=== PATIENT | male | born 1985 | race Caucasian/White ===

== ENCOUNTER 2017-03-23 05:16 | Emergency (ER) | payer MEDICAID ==
[~2017-03-23] VITALS: Ht 182.9 cm; Wt 85.9 kg
[2017-03-23 06:13] VITALS: BP 128/78
[2017-03-23] MEDS ORDERED: ALBUTEROL/IPRATROPIUM 2.5MG/0.5MG, 3 ML ONE (06:18)
[2017-03-23] MEDS: ALBUTEROL/IPRATROPIUM 2.5MG/0.5MG, 3 ML NPPB SCH (06:21)
== END 2017-03-23 07:38 | disposition home or self-care (01) ==
LOC: ED 05:50
DX: R06.00 Dyspnea, unspecified (principal); J45.909 Unspecified asthma, uncomplicated; F17.210 Nicotine dependence, cigarettes, uncomplicated
CPT/HCPCS: 36415; 71020; 84484; 93005; 94640; 99285; J7512; J7620

== ENCOUNTER 2019-10-12 11:47 | Emergency (ER) | payer SELFPAY ==
[~2019-10-12] VITALS: Ht 182.9 cm; Wt 88.7 kg
--- NOTE | 2019-10-12 11:55 | NUR ---
[facility] GRUBBS AT .
[2019-10-12] MEDS ORDERED: ACETAMINOPHEN 500 MG TABLET ONE (11:59)
[2019-10-12] MEDS ORDERED: ACETAMINOPHEN 500 MG TABLET PO ONE (12:00)
--- NOTE | 2019-10-12 12:05 | NUR ---
L WRIST ELEVATED & ICE PACK APPLIED. PT MEDICATED PER ORDERS, UNDERSTANDS POC.
[2019-10-12 13:10] VITALS: BP 118/73
--- NOTE | 2019-10-12 13:15 | NUR ---
L THUMB SPICA SPLINT APPLIED BY APPLIANCE LINE ASSEMBLER. CMS INTACT. SLING PROVIDED TO PT. D/C INSTRUCTIONS, MEDS & F/U APPT RV'WD WITH PT, HE VERBALIZES UNDERSTANDING. PT AMBULATED OUT OF ED WITH SIGNIFICANT OTHER WITHOUT DIFFICULTY.
== END 2019-10-12 13:25 | disposition home or self-care (01) ==
LOC: ED 13:00
DX: M25.532 Pain in left wrist (principal); W18.39XA Other fall on same level, initial encounter; Y93.51 Activity, roller skating (inline) and skateboarding; Y92.328 Other athletic field as the place of occurrence of the external cause; Y99.8 Other external cause status
CPT/HCPCS: 99283

== ENCOUNTER 2020-03-12 02:44 | Emergency (ER) | payer SELFPAY ==
[2020-03-12 02:46] VITALS: BP 120/80
--- NOTE | 2020-03-12 02:56 | NUR ---
TASK RN: PT FAMILY CALLED AND REPORTS SHE FOUND HEROIN RESIDUE AT HOME. IS CONCERNED PT OVERDOSED ON HEROIN. ASKED TO BE CALLED WITH UPDATES. WALLY,
[2020-03-12] MEDS ORDERED: SODIUM CHLORIDE FLUSH 10ML SYR IVF ONE (03:00)
[2020-03-12] MEDS ORDERED: SODIUM CHLORIDE 0.9% 1,000ML IVBOLUS ONE (03:00)
[2020-03-12 03:15] LABS: BASOPHILS # (AUTO) 0.03 x10^3/uL (0-0.1); BASOPHILS % (AUTO) 0 % (0-1); EOSINOPHILS # (AUTO) 0.18 x10^3/uL (0-0.4); EOSINOPHILS % (AUTO) 2 % (1-7); LYMPHOCYTES # (AUTO) 1.32 x10^3/uL (1-3.4); LYMPHOCYTES % (AUTO) 14 % (22-44); MD NO; MEAN CORPUSCULAR HEMOGLOBIN 31.3 pg (27.5-34.5); MEAN CORPUSCULAR HGB CONC 33.4 g/dL (33.2-36.2); MONOCYTES % (AUTO) 10 % (2-9); NEUTROPHILS # (AUTO) 6.97 x10^3/uL (1.8-6.8); NEUTROPHILS % (AUTO) 74 % (42-75); PLATELET COUNT 180 x10^3/uL (130-400); RED BLOOD COUNT 4.85 x10^6/uL (4.38-5.82); RED CELL DISTRIBUTION WIDTH 14.1 % (9.4-14.8)
[2020-03-12 03:22] LABS: ALANINE AMINOTRANSFERASE 169 U/L (12-78); ALBUMIN 3.3 g/dL (3.4-5.0); ANION GAP 6 mmol/L (5-15); CALCIUM 7.7 mg/dL (8.5-10.1); CHLORIDE 103 mmol/L (98-107); CREATININE 1.12 mg/dL (0.7-1.3)
[2020-03-12 03:25] LABS: ALKALINE PHOSPHATASE 62 U/L (45-117); BILIRUBIN,TOTAL 0.7 mg/dL (0.2-1.0); CREATINE KINASE, TOTAL 163 U/L (39-308); TOTAL PROTEIN 7.2 g/dL (6.4-8.2)
--- NOTE | 2020-03-12 04:14 | NUR ---
PT ASLEEP IN [facility] AT THIS TIME; EVELIO. CALL LIGHT IS WITHIN REACH OF PT AT THIS TIME.
[2020-03-12] MEDS ORDERED: NALOXONE 0.4 MG/ML, 1ML ONE (04:20)
[2020-03-12] MEDS ORDERED: NALOXONE 0.4 MG/ML, 1ML IVPush ONE (04:30)
--- NOTE | 2020-03-12 04:33 | NUR ---
PT ELOPED AT THIS TIME. PT GOT ANGRY AND AGGRESSIVE WITH STAFF AFTER IV ADMINISTRATION OF NARCAN. PT ENCOURAGED TO STAY FOR FURTHER EVALUATION, BUT PROCEEDED TO REGISTRATION DESK TO LEAVE WITHOUT D/C PAPERWORK AT THIS TIME.
== END 2020-03-12 04:36 | disposition left against medical advice (07) ==
LOC: ED 03:08
DX: S06.0X9A Concussion with loss of consciousness of unspecified duration, initial encounter (principal); R55 Syncope and collapse; T40.1X1A Poisoning by heroin, accidental (unintentional), initial encounter; S00.81XA Abrasion of other part of head, initial encounter; F11.20 Opioid dependence, uncomplicated; R94.5 Abnormal results of liver function studies; R09.02 Hypoxemia; Z72.9 Problem related to lifestyle, unspecified; R11.2 Nausea with vomiting, unspecified; R07.9 Chest pain, unspecified; R94.31 Abnormal electrocardiogram [ECG] [EKG]; F17.210 Nicotine dependence, cigarettes, uncomplicated; X58.XXXA Exposure to other specified factors, initial encounter; Y93.89 Activity, other specified; Y92.89 Other specified places as the place of occurrence of the external cause; Y99.8 Other external cause status
CPT/HCPCS: 36415; 70450; 71045; 80053; 82550; 85025; 93005; 96361; 96374; 99285; 99406; J2310; J7030

== ENCOUNTER 2020-09-13 20:02 | Emergency (ER) | payer SELFPAY ==
[~2020-09-13] VITALS: Ht 182.9 cm; Wt 92.0 kg
[2020-09-13 20:09] VITALS: BP 141/71
== END 2020-09-13 23:40 | disposition home or self-care (01) ==
LOC: ED 23:00
DX: S39.012A Strain of muscle, fascia and tendon of lower back, initial encounter (principal); M51.36 Other intervertebral disc degeneration, lumbar region; X58.XXXA Exposure to other specified factors, initial encounter; Y93.89 Activity, other specified; Y92.89 Other specified places as the place of occurrence of the external cause; Y99.8 Other external cause status
CPT/HCPCS: 72110; 99283